=== PATIENT | female | born 1965 | race African-American/Black ===

== ENCOUNTER 2024-05-12 19:36 | Emergency (ER) | payer OTHER, SELFPAY ==
--- NOTE | ~2024-05-12 | XR_ITS ---
EXAMINATION: XR shoulder RT min 2V DATE: 05/12/2024 21:08 INDICATION: Status post reduction right glenohumeral dislocation. TECHNIQUE: AP and transscapular Y views of the right shoulder were obtained. COMPARISON: None FINDINGS: Successful reduction of the previously dislocated right glenohumeral joint which is now in normal ali gnment. Hill-Sachs fracture trough is seen at the posterolateral right humeral head. No evident Banka rt fracture at the glenoid. Mild osteoarthritis at the acromioclavicular joint. Improved aeration at the right lung base with prior opacities likely related to transient atelectasis. IMPRESSION: 1. Successful reduction to normal alignment of the previously dislocated right glenohumeral joint. 2. Hill-Sachs fracture at the posterolateral right humeral head. Reviewed, dictated and finalized at location A.
--- NOTE | ~2024-05-12 | XR_ITS ---
EXAMINATION: XR shoulder RT min 2V DATE: 05/12/2024 20:06 INDICATION: Right shoulder pain post fall TECHNIQUE: AP and transscapular Y views of the right shoulder were obtained. COMPARISON: None FINDINGS: Anterior dislocation of the right glenohumeral joint. No evident fracture. Mild osteoarthritis at the right acromioclavicular joint. Mild opacities in the right lower lung zone which could represent ate lectasis, aspiration/pneumonia or mild pulmonary edema. IMPRESSION: 1. Right glenohumeral anterior dislocation. Line 2. Mild opacities at the right lower lung zone which could represent atelectasis, aspiration, pneumon ia or mild pulmonary edema. Reviewed, dictated and finalized at location A. IMPRESSION: 1. Right glenohumeral anterior dislocation. Line 2. Mild opacities at the right lower lung zone which could represent atelectasi s, aspiration, pneumonia or mild pulmonary edema.
[2024-05-12 19:42] VITALS: BP 101/63; PULSE 62; RESP 17; TEMP 36.1; O2SAT 100
[2024-05-12] MEDS: KETOROLAC 30 MG/ML VIAL (*BKC) IM (20:18)
[2024-05-12] MEDS: HYDROmorphone HCL INJ (*CRX) 1 MG/ML SYR IM (20:19)
[2024-05-12] MEDS: methocarbamoL 750 MG TABLET PO (21:04)
[2024-05-12] MEDS: LIDOCAINE HCL 1% LOCAL INJ 10 ML VIAL (21:04)
--- NOTE | 2024-05-12 21:12 | ED.GENADULT ---
HPI - General Adult General Chief complaint: Extremity Injury, Upper Stated complaint: right shoulder injury Time Seen by Provider: 05/12/24 19:38 History of Present Illness HPI narrative: This is a 59-year-old female presenting ED after a fall. She tripped going down stairs landed on her right shoulder. She immediately had pain in her right shoulder and inability to lift her arm. She has never dislocated shoulder before. No other injuries or head trauma. Related Data Allergies Allergy/AdvReac Type Severity Reaction Status Date / Time No Known Allergies Allergy Verified 05/12/24 19:48 Exam Narrative: APPEARANCE: No apparent distress. Head: atraumatic. EYES: EOMI, NOSE: Atraumatic NECK: Trachea midline RESPIRATORY: No increased rate of breathing CARDIOVASCULAR: RRR, ABDOMINAL: Non-distended MUSCULOSKELETAl: Focal exam of the right upper extremity revealed deformity of the shoulder, the arm is complaints lack of the patient's side, no lateral deltoid numbness, Radian ulnar pulses intact, radial ulnar median nerve motor function intact NEURO: Alert. Moving 4/4 extremities SKIN:: Warm, dry. Normal color PSYCHIATRIC: Normal affect Course Vital Signs Vital signs: Vital Signs Temperature 97.0 F L 05/12/24 19:42 Pulse Rate 62 05/12/24 19:42 Respiratory Rate 17 05/12/24 19:42 Blood Pressure 101/63 05/12/24 19:42 Pulse Oximetry 100 05/12/24 19:42 Oxygen Delivery Room Air 05/12/24 19:42 Temperature 97.0 F L 05/12/24 19:42 Pulse Rate 82 05/12/24 21:23 Respiratory Rate 17 05/12/24 21:23 Blood Pressure 121/74 05/12/24 21:23 Pulse Oximetry 97 05/12/24 21:23 Oxygen Delivery Room Air 05/12/24 19:42 Procedures Orthopedic Joint Reduction Joint #1: Orthopedic Joint Reduction Date: 05/12/24 Time Out Performed: Yes Side: right Joint Reduction Location: shoulder Analgesia: nerve block Pre-Procedure Neuro Vascular Exam: normal Local Anesthesia: lidocaine 1% Amount of anesthesic used (mL): 4 Shoulder Technique Used (if applicable): traction/counter-traction Technique used: traction/counter-traction Post-reduction neuro exam: intact Post-reduction vascular: intact Post Reduction X-Ray Obtained: Yes Post Reduction X-Ray Results: reduced Splint Applied: Yes Patient Tolerated Procedure: no complications Medical Decision Making MDM Narrative Medical decision making narrative: -Course: 59-year-old female presenting after a fall. Dislocation of the right shoulder. Shoulder was reduced using an interscalene block. Neurovascularly intact before and after the procedure. Patient placed in our mobilizer and given follow-up with Orthopedics. -DDX includes but is not limited to: Shoulder dislocation, proximal humerus fracture -Independent interpretation of studies: Shoulder x-ray showing a right glenohumeral dislocation an appropriate reduction and hillsachs deformity -Procedures: Interscalene block and shoulder reduction -Interventions:1 Mg Dilaudid, 30 mg IM Toradol, 750 robaxin -Shared decision making / Disposition: Discharged -RX Motrin Tylenol Robaxin Vital Signs Vital Signs: Vital Signs Temperature 97.0 F L 05/12/24 19:42 Pulse Rate 62 05/12/24 19:42 Respiratory Rate 17 05/12/24 19:42 Blood Pressure 101/63 05/12/24 19:42 Pulse Oximetry 100 05/12/24 19:42 Oxygen Delivery Room Air 05/12/24 19:42 Temperature 97.0 F L 05/12/24 19:42 Pulse Rate 82 05/12/24 21:23 Respiratory Rate 17 05/12/24 21:23 Blood Pressure 121/74 05/12/24 21:23 Pulse Oximetry 97 05/12/24 21:23 Oxygen Delivery Room Air 05/12/24 19:42 Discharge Plan Discharge Clinical Impression: Dislocated shoulder Patient Disposition: Home, Self-Care Condition: Stable Instructions: Antibiotic Form, Shoulder Dislocation (ED) Additional Instructions: Please fol
[2024-05-12 21:23] VITALS: BP 121/74; PULSE 82; RESP 17; O2SAT 97
[2024-05-12] MEDS: ONDANSETRON HCL ODT 4 MG TABLET PO (21:52)
== END 2024-05-12 22:00 | disposition home or self-care (01) ==
PROVIDERS: Emergency Provider Emergency Medicine
DX: S43.004A Unspecified dislocation of right shoulder joint, initial encounter (principal); W10.9XXA Fall (on) (from) unspecified stairs and steps, initial encounter
CPT/HCPCS: 23650; 73030; 96372; 99285; A9270; J1170; J1885